=== PATIENT | female | born 2000 | race Caucasian/White ===

== ENCOUNTER 2023-05-18 16:54 | Emergency (ER) | payer BC, SELFPAY ==
[2023-05-18 17:06] VITALS: BP 129/72; PULSE 81; RESP 16; TEMP 36.9; O2SAT 100
[2023-05-18] MEDS: TETANUS,DIPHTHERIA,AC PERTUSSIS ADULT (0.5 ML) BOOSTRIX IM (17:19)
--- NOTE | 2023-05-18 17:49 | ED.WOUNDLAC ---
HPI - Wound/Laceration General Chief Complaint: Wound/Laceration Stated Complaint: RIght Eye Dog Scratch Time Seen by Provider: 05/18/23 17:14 Source: patient and RN notes reviewed Mode of arrival: ambulatory Limitations: no limitations History of Present Illness HPI narrative: Patient presents today complaining of a laceration to her right eyelid that occurred approximately 1 hour prior to arrival. 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 She is not up-to-date on her tetanus vaccine. Believes dog is up-to-date on its shots. Related Data Allergies Allergy/AdvReac Type Severity Reaction Status Date / Time No Known Allergies Allergy Verified 05/18/23 17:01 Review of Systems Review of Systems: CONSTITUTIONAL: Denies body aches, fever, chills, or sweats. EYES: Denies visual changes, redness, or discharge.+ laceration to right upper eyelid ENT: Denies rhinorrhea, congestion, sore throat, or otalgia. CARDIOVASCULAR: Denies chest pain, palpitations, or edema. RESPIRATORY: Denies cough or dyspnea. GASTROINTESTINAL: Denies abdominal pain, nausea, vomiting, or diarrhea. GENITOURINARY: Denies dysuria or hematuria. SKIN: Denies rash, itching, or wounds. MUSCULOSKELETAL: Denies back pain, joint pain, or myalgia. NEUROLOGIC: Denies headache, numbness, tingling, or weakness. PSYCH: Denies depression or anxiety. PMFSH Comments At time of signature, I have reviewed and agree with nursing past medical, surgical, social and family history unless otherwise noted. Please see nursing chart for further information. There is no relevant family history pertinent to the presenting complaint Exam Narrative: GENERAL: Well-appearing, well-nourished, and in no acute distress. HEAD: Normocephalic, atraumatic. EYES: EOMI. PERRL. No redness or drainage. Conjunctivae normal. 2cm partial thickness linear laceration to the mid right upper eye lid at the eyelid fold area. No active bleeding. There is approx 2-3mm gaping. ENT: Mucous membranes pink and moist. NECK: Normal AROM. CHEST: No respiratory distress. EXTREMITIES: Normal range of motion. No edema. SKIN: Warm, dry, no rash. Capillary refill normal. Normal skin turgor. NEURO: No focal deficits. Alert and oriented x3. Gait steady. PSYCH: Normal affect. No signs of depression or anxiety. Course Course Level of Care: Express Care Visit Vital Signs Vital signs: Vital Signs Temperature 98.4 F 05/18/23 17:06 Pulse Rate 81 05/18/23 17:06 Respiratory Rate 16 05/18/23 17:06 Blood Pressure 129/72 05/18/23 17:06 Pulse Oximetry 100 05/18/23 17:06 Oxygen Delivery Room Air 05/18/23 17:06 Temperature 98.4 F 05/18/23 17:06 Pulse Rate 81 05/18/23 17:06 Respiratory Rate 16 05/18/23 17:06 Blood Pressure 129/72 05/18/23 17:06 Pulse Oximetry 100 05/18/23 17:06 Oxygen Delivery Room Air 05/18/23 17:06 Reviewed Procedures Laceration Laceration 1: Date: 05/18/23 Time: 17:49 Site: face (right eyelid) Side (If applicable): right Size (cm): 2 Description: linear Depth: simple, single layer Local Anesthetic: lidocaine 1% Amount of anesthesia used (mL): 0.5 Pre-repair: wound explored, irrigated and irrigated extensively ====== Skin Level ====== Skin layer closed with: nylon Size (cm): other (7-0) Number of sutures: 5 Technique: simple, interrupted ====== Subcutaneous Layer ====== ====== Muscle Layer ====== ====== Tendon Layer ====== MDM - Wound/Laceration MDM Narrative Medical decision making narrative: Prior to laceration repair, discussed with patient that she did have the option of seeking treatment at a higher level of care facility that may have plastic surgery manager acquisition
== END 2023-05-18 17:52 | disposition home or self-care (01) ==
PROVIDERS: Emergency Provider Nurse Practitioner; PCP Pediatrics
DX: S01.111A Laceration without foreign body of right eyelid and periocular area, initial encounter (principal); W54.8XXA Other contact with dog, initial encounter; Y99.0 Civilian activity done for income or pay; Z23 Encounter for immunization; Z86.16 Personal history of COVID-19
CPT/HCPCS: 12011; 90471; 90715; 99213; G0463

== ENCOUNTER 2023-05-25 11:28 | Emergency (ER) | payer BC, SELFPAY ==
--- NOTE | 2023-05-25 11:34 | ED.WOUNDLAC ---
HPI - Wound/Laceration General Chief Complaint: Wound/Laceration Stated Complaint: suture removal Time Seen by Provider: 05/25/23 11:34 Source: patient Mode of arrival: ambulatory Limitations: no limitations History of Present Illness HPI narrative: Regina is a 23-year-old female patient presenting to the clinic today for suture removal to the right eyelid. Reports she has suture repair one week ago. 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 Patient denies any fever, chills, rash, headache, visual changes, dizziness, cough, runny nose, sore throat, shortness of breath, chest pain, palpitations, nausea, vomiting, diarrhea, constipation, abdominal pain, or any urinary issues. PMFSH Comments At the time of my signature, I reviewed and agree with the nursing past medical, surgical, social, and family history. There is no relevant family history pertinent to the patient complaint. Exam Narrative: General: Well-developed, well nourished, in no apparent distress Head: Normocephalic, atraumatic. Cardio: Regular rate and rhythm, s1 and s2 normal, no murmur appreciated. Resp: Clear to auscultation bilaterally, no rhonchi, rales, wheezing or rubs. Integumentary: [place], warm, and dry, 5 interrupted sutures were removed with slight dehiscence of the middle of the healing laceration. Two Steri-Strips were applied to bring wound edges together. Patient tolerated well. Course Course Emergency Course: Portions of this record may have been created with voice recognition software. Level of Care: Express Care Visit Vital Signs Vital signs: Vital signs reviewed Procedures Laceration Laceration 1: Date: 05/25/23 Site: other (eyelid) Side (If applicable): right Size (cm): 1.5 Description: linear Depth: simple, single layer Pre-repair: irrigated ====== Skin Level ====== Skin layer closed with: steri strips ====== Subcutaneous Layer ====== ====== Muscle Layer ====== ====== Tendon Layer ====== MDM - Wound/Laceration MDM Narrative Medical decision making narrative: At the time of visit patient is resting comfortably on the exam table. Patient appears to be nontoxic. Plan: Removed 5 interrupted sutures and 2 Steri-Strips were applied for slight wound dehiscence to the middle of the laceration. Supportive measures were discussed with the patient and they voiced understanding discharge instructions and agrees to treatment plan. Return precautions reviewed Differential Diagnosis Differential diagnosis: Likely laceration, abscess, abrasion, avulsion of skin and other (COVID) Discharge Plan Discharge Clinical Impression: Encounter for removal of sutures Patient Disposition: Home, Self-Care Condition: Stable Instructions: Antibiotic Form, Stitches Removal (ED) Additional Instructions: Leave Steri-Strips in place-they will fall off on their own Keep area clean and dry. May take Tylenol/Motrin as needed for pain Watch for any signs and symptoms of infection-redness, swelling, and drainage, increasing pain, or streaking-go to the emergency room or follow-up with your primary care provider if this occurs. Prescriptions: No Action amoxicillin-pot clavulanate 875-125 mg tablet 1 tablet PO Q12H 5 Days Qty: 10 0RF Follow-up/Referrals: PHYSICIAN,CARBON PASTE MIXER OPERATOR [Primary Care Provider] - Time of Disposition: 12:20 Quality NIHSS Nursing Documentation ED NIHSS nursing documentation: reviewed/agree
[2023-05-25 11:45] VITALS: BP 117/67; PULSE 65; RESP 18; TEMP 36.8; O2SAT 100
== END 2023-05-25 12:29 | disposition home or self-care (01) ==
PROVIDERS: Emergency Provider Nurse Practitioner Family
DX: S01.111D Laceration without foreign body of right eyelid and periocular area, subsequent encounter (principal); W54.8XXD Other contact with dog, subsequent encounter; Z86.16 Personal history of COVID-19
CPT/HCPCS: 99211; G0463

== ENCOUNTER 2025-01-03 13:12 | Emergency (ER) | payer BC, SELFPAY ==
--- NOTE | ~2025-01-03 | XR_ITS ---
Examination: XR chest 2V Clinical History: cough x 4 weeks Comparison: None Technique: PA and Lateral Findings: Cardiomediastinal silhouette normal size and configuration. Lungs clear. No acute bony abnormality. IMPRESSION: 1. No acute cardiopulmonary findings. Reviewed, dictated and finalized at location R. [place] FIELD REPRESENTATIVE
--- NOTE | 2025-01-03 13:16 | ED_ITS ---
HPI - URI/Sore Throat General Chief Complaint: Upper Respiratory Infection Stated Complaint: Cough Time Seen by Provider: 01/03/25 13:20 Source: patient Mode of arrival: ambulatory Limitations: no limitations History of Present Illness HPI Narrative: Regina is a 24-year-old female patient presenting to the clinic today with complaints of a cough x1 month. She reports she had a URI viral illness at the beginning of her symptoms and although symptoms have improved but now she has a lingering cough. Cough is nonproductive. Denies any shortness of breath. Did have 1 episode of chest discomfort last night x 2 hour in the center of her chest however that has resolved. No fevers, chills, body aches. Does feel like she still has some nasal congestion. Has not taken any medications for her symptoms. Related Data Allergies Allergy/AdvReac Type Severity Reaction Status Date / Time No Known Allergies Allergy Verified 01/03/25 13:14 Review of Systems Review of Systems: Pertinent positives per HPI. Patient denies any fever, chills, rash, headache, visual changes, dizziness, shortness of breath, chest pain, palpitations, nausea, vomiting, diarrhea, constipation, abdominal pain, or any urinary issues. PMFSH Comments At the time of my signature, I reviewed and agree with the nursing past medical, surgical, social, and family history. There is no relevant family history pertinent to the patient complaint. Exam Narrative: General: Well-developed, well nourished, in no apparent distress Head: Normocephalic, atraumatic Eyes: Pupils equally round and reactive to light bilaterally, EOM intact, sclera and conjunctive clear, no discharge, lids normal Ears: TMs intact and congested, ear canals clear, no drainage, grossly hearing normal. Nose: Nares patent, no discharge, no inflammation, no sinus tenderness. Mouth: Oral pharynx without lesions or masses, good dentition, MMM. Postnasal drip Neck: Supple, trachea midline, no enlargement of anterior or posterior cervical nodes, no thyroid masses or goiter palpable. Cardio: Regular rate and rhythm, s1 and s2 normal, no murmur appreciated. Resp: Clear to auscultation bilaterally, no rhonchi, rales, wheezing or rubs Course Course Emergency Course: Portions of this record may have been created with voice recognition software. Level of Care: Express Care Visit Vital Signs Vital signs: Vital Signs Temperature 36.6 C 01/03/25 13:22 Pulse Rate 71 01/03/25 13:22 Respiratory Rate 14 01/03/25 13:22 Blood Pressure 141/61 H 01/03/25 13:22 Pulse Oximetry 100 01/03/25 13:22 Oxygen Delivery Room Air 01/03/25 13:22 Temperature 36.6 C 01/03/25 13:22 Pulse Rate 71 01/03/25 13:22 Respiratory Rate 14 01/03/25 13:22 Blood Pressure 141/61 H 01/03/25 13:22 Pulse Oximetry 100 01/03/25 13:22 Oxygen Delivery Room Air 01/03/25 13:22 Vital signs reviewed MDM - URI/Sore Throat MDM Narrative Medical decision making narrative: At the time of visit patient is resting comfortably on the exam table. Patient appears to be nontoxic. complaints of a cough x1 month. She reports she had a URI viral illness at the beginning of her symptoms and although symptoms have improved but now she has a lingering cough. Cough is nonproductive. Denies any shortness of breath. Did have 1 episode of chest discomfort last night x 2 hour in the center of her chest however that has resolved. No fevers, chills, body aches. Does feel like she still has some nasal congestion. Has not taken any medications for her symptoms. On exam patient has TMs intact and congested, no nasal drainage, oral pharynx with postnasal drip, lung sounds are clear, heart rates regular rate and rhythm. Chest x-ray was ordered Diagnostics: Chest x-ray was performed and is negative for any acute cardiopulmonary process. Plan I suspect patient has postviral cough syndrome/postnasal drip. Prescription for prednisone was sent to the pharmacy. Supportive measures were discussed with the patient and they voiced understanding discharge instructions and agrees to treatment plan. Return precautions reviewed Differential Diagnosis Differential diagnosis: Likely upper respiratory infection, otitis media, sinusitis, viral infection, bronchitis, influenza, pharyngitis and other (COVID) Imaging Data Radiologist's impression: ITS Impressions Chest X-Ray 01/03/25 13:41 IMPRESSION: 1. No acute cardiopulmonary findings. Discharge Plan Discharge Clinical Impression: Post-viral cough syndrome, PND (post-nasal drip) Patient Disposition: Home Condition: Stable Instructions: Antibiotic Form, Acute Cough (ED), Postnasal Drip (DC) Additional Instructions: Chest x-rays negative for any acute cardiopulmonary process. Take prescription medications only as prescribed-prednisone Increase fluids and stay well hydrated May take Tylenol or motrin as directed on bottle for pain/fever May use Flonase 1 spray in each nare daily May take OTC antihistamines such as Zyrtec or Claritin daily as directed on bottle May apply Vicks vapor rub to chest to open sinuses Sinus rinses for congestion Cepacol spray, cough drops, throat lozenges, warm tea with honey/lemon, gargle salt water to soothe throat BRAT diet for diarrhea Clear liquids x 24 hours then advance as tolerated for nausea/vomiting Go to the ED if you develop a worsening in your condition- high fever not controlled by Tylenol or Motrin, dehydration, weakness, lethargy, shortness of breath, or chest pain. Follow up with your PCP in 3-5 days if symptoms persist. Patient Language: Japanese Prescriptions: New prednisone 20 mg tablet 40 mg PO DAILY 5 Days Qty: 10 0RF Follow-up/Referrals: PHYSICIAN,SENIOR PATIENT ACCOUNT REPRESENTATIVE [Primary Care Provider, Internal Medicine] Stand Alone Forms: Work/School Release IP Time of Disposition: 13:46 Quality NIHSS Nursing Documentation ED NIHSS nursing documentation: reviewed/agree
[2025-01-03 13:22] VITALS: BP 141/61; PULSE 71; RESP 14; TEMP 36.6; O2SAT 100
== END 2025-01-03 13:48 | disposition home or self-care (01) ==
PROVIDERS: Emergency Provider Nurse Practitioner Family
DX: R05.8 Other specified cough (principal); R09.82 Postnasal drip; Z86.16 Personal history of COVID-19
CPT/HCPCS: 71046; 99213; G0463